=== PATIENT | male | born 1990 | race Caucasian/White ===

== ENCOUNTER 2022-06-07 17:58 | Emergency (ER) | payer SELFPAY ==
[2022-06-07 18:05] VITALS: BP 126/72; PULSE 93; RESP 18; TEMP 36.9; O2SAT 100
--- NOTE | 2022-06-07 18:32 | ED.ANXIETY ---
HPI - Anxiety General Chief Complaint: Anxiety Stated Complaint: Anxiety Time Seen by Provider: 06/07/22 18:33 Source: patient Mode of arrival: ambulatory Limitations: no limitations History of Present Illness HPI narrative: 31-year-old male presented for complaint of mood changes related to increased stress in the last few months following a relationship ending. He endorses feeling angry, stating he lashed out at his job today. Also feels like he does not want to be around people. Endorses history of anxiety, depression, and ADD, and has hx self harm. He has taken sertraline, but has not been on the medication for about 2 years. He currently denies SI/HI. Denies alcohol or drug use. Patient vapes nicotine and smokes marijuana. Related Data Home Medications Medication Instructions Recorded Confirmed No Home Medications 06/07/22 06/07/22 Allergies Allergy/AdvReac Type Severity Reaction Status Date / Time No Known Allergies Allergy Unknown Verified 06/07/22 19:15 Review of Systems Review of Systems: CONSTITUTIONAL: Denies body aches, fever, chills, or sweats. EYES: Denies visual changes, redness, or discharge. ENT: Denies rhinorrhea, congestion, sore throat, or otalgia. CARDIOVASCULAR: Denies chest pain, palpitations, or edema. RESPIRATORY: Denies cough or dyspnea. GASTROINTESTINAL: Denies abdominal pain, nausea, vomiting, or diarrhea. GENITOURINARY: Denies dysuria or hematuria. SKIN: Denies rash, itching, or wounds. MUSCULOSKELETAL: Denies back pain, joint pain, or myalgia. NEUROLOGIC: Denies headache, numbness, tingling, or weakness. PSYCH: Endorses depression and anxiety. All systems reviewed & are unremarkable except as noted in HPI and below PMFSH Past Medical History Medical History (Updated 06/07/22 @ 19:22 by Flora Ott, KATHERINE) Anxiety Depression Comments At time of signature, I have reviewed and agree with nursing past medical, surgical, social and family history unless otherwise noted. Please see nursing chart for further information. There is no relevant family history pertinent to the presenting complaint Exam Narrative: GENERAL: Well-appearing, well-nourished, and in no acute distress. EYES: EOMI. No redness or drainage. Conjunctivae normal. ENT: Mucous membranes pink and moist. No rhinorrhea. NECK: Normal AROM. Supple. CHEST: Clear to auscultation. HEART: Regular rate and rhythm. SKIN: Warm, dry, no rash. Capillary refill normal. Normal skin turgor. NEURO: No focal deficits. Alert and oriented x3. Gait steady. PSYCH: Normal affect. No signs of depression or anxiety at this time. No SI/HI. Course Course Emergency Course: Patient is aware of diagnosis, understands and agrees to treatment plan. Anticipatory guidance given. Patient agrees to follow-up as directed and is aware of reasons to seek care at the emergency department. Portions of this record may have been created with voice recognition software Level of Care: Express Care Visit Vital Signs Vital signs: Vital Signs Temperature 98.5 F 06/07/22 18:05 Pulse Rate 93 06/07/22 18:05 Respiratory Rate 18 06/07/22 18:05 Blood Pressure 126/72 06/07/22 18:05 Pulse Oximetry 100 06/07/22 18:05 Oxygen Delivery Room Air 06/07/22 18:05 Temperature 98.5 F 06/07/22 18:05 Pulse Rate 93 06/07/22 18:05 Respiratory Rate 18 06/07/22 18:05 Blood Pressure 126/72 06/07/22 18:05 Pulse Oximetry 100 06/07/22 18:05 Oxygen Delivery Room Air 06/07/22 18:05 MDM - Anxiety MDM Narrative Medical decision making narrative: Discussed mental health resources and coping strategies. Provided list of behavioral health options. Advised suicide prevention hotline or ER should he develop SI or worsening symptoms. Advised supportive measures and signs/symptoms to go to the ER. Pt is appropriate for outpt treatment and f/u. Differential Diagnosis Differential diagnosis: Likely acute anxiety and
== END 2022-06-07 18:59 | disposition home or self-care (01) ==
PROVIDERS: Emergency Provider Nurse Practitioner Family; PCP Family Medicine
DX: F43.9 Reaction to severe stress, unspecified (principal)
CPT/HCPCS: 99211; G0463